=== PATIENT | female | born 1985 | race Caucasian/White ===

== ENCOUNTER 2021-04-15 07:51 | Day surgery (SDC) | payer OTHER ==
[~2021-04-15 07:51] MED LIST: Lidocaine 1% with EPINEPHrine 1:100,000 20 ML MDV ONE; Lidocaine 1%/Sod Bicarbonate in NS 8.4% 1 ML Syringe IDERM PRN; Sodium Chloride 0.9% 10 ML Syringe FLUSH PRN; Sodium Chloride 0.9% 20 ML ONE
[2021-04-15] MEDS ORDERED: fentaNYL 250 MCG/5 ML SDV ONE (08:15)
[2021-04-15] MEDS ORDERED: Ondansetron 4 MG/2 ML SDV ONE (08:15)
[2021-04-15] MEDS ORDERED: Rocuronium 50 MG/5 ML Vial ONE (08:15)
[2021-04-15] MEDS ORDERED: Midazolam 1 MG/ML 2 ML SDV ONE ×2 (08:15→09:04)
[2021-04-15] MEDS ORDERED: Propofol 200 MG/20 ML SDV ONE (08:15)
[2021-04-15] MEDS ORDERED: Dexamethasone 4 MG/ML 5 ML MDV ONE (08:15)
[2021-04-15] MEDS ORDERED: Lidocaine 1% 4 ML ONE (08:15)
[2021-04-15] MEDS: Lactated Ringers 1,000 ML IV SCH ×2 (08:15→14:21)
[2021-04-15] MEDS ORDERED: Ketamine 500 mg/10 ML MDV ONE (08:20)
[2021-04-15] MEDS ORDERED: ceFAZolin 1 GM Vial ONE (08:21)
--- NOTE | 2021-04-15 08:46 | PCM.PREANE ---
Preanesthetic Assessment - Procedure Proposed Procedure: tvh with bs - Anesthesia/Transfusion/Family Hx Anesthesia History: Prior Anesthesia Without Reaction Family History of Anesthesia Reaction: No Transfusion History: No Prior Transfusion(s) - Review of Systems General: No Symptoms Pulmonary: No Symptoms Cardiovascular: No Symptoms Gastrointestinal: No Symptoms Neurological: No Symptoms Other: Reports: Depression, Anxiety - Physical Assessment NPO Status Date: 04/14/21 NPO Status Time: 22:30 Vital Signs: 140/92 82 98% 99.0 16 Height: 5 ft 2 in Weight: 67.3 kg ASA Class: 2 Mental Status: Alert & Oriented x3 Airway Class: Mallampati = 1 Dentition: Reports: Normal Dentition Thyro-Mental Finger Breadths: 3 Mouth Opening Finger Breadths: 3 ROM/Head Extension: Full Lungs: Clear to Auscultation, Normal Respiratory Effort Cardiovascular: Regular Rate, Regular Rhythm - Allergies Allergies/Adverse Reactions: Allergies Allergy/AdvReac Type Severity Reaction Status Date / Time No Known Allergies Allergy Verified 04/14/21 15:38 - Blood Blood Available: No - Acknowledgements Anesthesia Type Planned: General Anesthesia Pt an Appropriate Candidate for the Planned Anesthesia: Yes Alternatives and Risks of Anesthesia Discussed w Pt/Guardian: Yes Pt/Guardian Understands and Agrees with Anesthesia Plan: Yes PreAnesthesia Questionnaire HEENT History: Reports: None Cardiovascular History: Reports: Other (See Below) Other Cardiovascular History: PIH towards the end of every Respiratory History: Reports: None Gastrointestinal History: Reports: Other (See Below) Other Gastrointestinal History: UMBILICAL HERNIA, ABDOMINAL PAIN Genitourinary History: Reports: Other (See Below) Other 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: Endometrial Ablation, , Other (See Below) Other OB/BYN History: breast cyst, bilateral galactorrhea, right breast mass, abnormal uterine bleeding, menorrhagia, dysmenorrhea, Musculoskeletal History: Reports: None Neurological History: Reports: Headaches, Chronic, Migraines Psychiatric History: Reports: Anxiety, Depression, Other (See Below) Other Psychiatric History: fatigue Endocrine/Metabolic History: Reports: Diabetes, Gestational Hematologic History: Reports: None Immunologic History: Reports: None Oncologic (Cancer) History: Reports: None Dermatologic History: Reports: Other (See Below) Other Dermatologic History: nevus - Infectious Disease History Infectious Disease History: Reports: None - Past Surgical History Head Surgeries/Procedures: Reports: None HEENT Surgical History: Reports: Oral Surgery, Tonsillectomy Cardiovascular Surgical History: Reports: None Respiratory Surgical History: Reports: None GI Surgical History: Reports: None Female Surgical History: Reports: Section Male Surgical History: Reports: None Endocrine Surgical History: Reports: None Neurological Surgical History: Reports: None Musculoskeletal Surgical History: Reports: None Oncologic Surgical History: Reports: None Dermatological Surgical History: Reports: None - SUBSTANCE USE Tobacco Use Status *Q: Never Tobacco User Tobacco Use Within Last Twelve Months: No Second Hand Smoke Exposure: No Days Per Week of Alcohol Use: 1 Recreational Drug Use History: No - HOME MEDS Home Medications: Home Meds FLUoxetine HCl [Fluoxetine HCl] 20 mg PO DAILY 04/02/19 [History] Multivitamin [Daily Multiple Vitamin] 1 tab PO DAILY 04/02/19 [History] Lactobacillus Acidophilus [Probiotic] 1 cap PO DAILY 04/14/21 [History] - CURRENT (IN HOUSE) MEDS Current Meds: Current Medications Lactated Ringer's (Ringers, Lactated) 1,000 mls @ 125 mls/hr IV ASDIRECTED VANESSA Stop: 04/15/21 23:00 Lidocaine/Sodium Bicarbonate (Lidocaine 1%/Sod Bicarbonate In Ns 8.4% 1 Ml Syringe) 0.25 ml IDERM ONETIME PRN PRN Reason: Prior to IV Start Stop: 04/15/21 18:00 Sodium Chloride (Sodium Chloride 0.9% 10 Ml Syringe) 10 ml FLUSH ASDIRECTED PRN PRN Reason: Keep Vein Open Stop: 04/15/21 18:00 Discontinued Medications Cefazolin Sodium (Cefazolin 1 Gm Vial) Confirm Administered Dose 2 gm .ROUTE .STK-MED ONE Stop: 04/15/21 08:22 Dexamethasone (Dexamethasone 4 Mg/Ml 5 Ml Mdv) Confirm Administered Dose 20 mg .ROUTE .STK-MED ONE Stop: 04/15/21 08:16 Fentanyl (Fentanyl 250 Mcg/5 Ml Sdv) Confirm Administered Dose 250 mcg .ROUTE .STK-MED ONE Stop: 04/15/21 08:16 Sodium Chloride (Normal Saline) Confirm Administered Dose 20 mls @ as directed .ROUTE .STK-MED ONE Stop: 04/15/21 07:28 Lidocaine HCl (Xylocaine-Mpf 1%) Confirm Administered Dose 4 mls @ as directed .ROUTE .STK-MED ONE Stop: 04/15/21 08:16 Ketamine HCl (Ketamine 500 Mg/10 Ml Mdv) Confirm Administered Dose 500 mg .ROUTE .STK-MED ONE Stop: 04/15/21 08:21 Lidocaine/Epinephrine (Lidocaine 1% With Epinephrine 1:100,000 20 Ml Mdv) Confirm Administered Dose 20 ml .ROUTE .STK-MED ONE Stop: 04/15/21 07:28 Midazolam HCl (Midazolam 1 Mg/Ml 2 Ml Sdv) Confirm Administered Dose 2 mg .ROUTE .STK-MED ONE Stop: 04/15/21 08:16 Ondansetron HCl (Ondansetron 4 Mg/2 Ml Sdv) Confirm Administered Dose 4 mg .ROUTE .STK-MED ONE Stop: 04/15/21 08:16 Propofol (Propofol 200 Mg/20 Ml Sdv) Confirm Administered Dose 200 mg .ROUTE .STK-MED ONE Stop: 04/15/21 08:16 Rocuronium [place] (Rocuronium 50 Mg/5 Ml Vial) Confirm Administered Dose 50 mg .ROUTE .STK-MED ONE Stop: 04/15/21 08:16
[2021-04-15] MEDS ORDERED: Ondansetron 4 MG/2 ML SDV IVPUSH PRN ×2 (10:33→11:10)
[2021-04-15] MEDS ORDERED: HYDROmorphone 0.5 MG/0.5 ML Syringe IVPUSH PRN (10:33)
[2021-04-15] MEDS ORDERED: fentaNYL 100 MCG/2 ML SDV IVPUSH PRN (10:33)
[2021-04-15] MEDS ORDERED: ePHEDrine 50 MG/ML SDV ONE (10:42)
[2021-04-15] MEDS ORDERED: HYDROmorphone 0.5 MG/0.5 ML Syringe ONE (10:45)
[2021-04-15] MEDS ORDERED: Lactated Ringers 1,000 ML ONE (10:52)
[2021-04-15] MEDS ORDERED: Ketorolac 30 MG/ML SDV ONE (10:58)
[2021-04-15] MEDS ORDERED: Ibuprofen 600 MG Tab PO PRN (11:10)
[2021-04-15] MEDS ORDERED: Acetaminophen/oxyCODONE 325-5 MG Tab PO PRN (11:10)
[2021-04-15] MEDS ORDERED: Ketorolac 30 MG/ML SDV IVPUSH SCH (11:15)
--- NOTE | 2021-04-15 11:16 | PCM.OPNOTE ---
- General Post-Op/Procedure Note Date of Surgery/Procedure: 04/15/21 Operative Procedure(s): Total vaginal hysterectomy with bilateral salpingectomy Findings: Grade 1 uterine descensus, anterior and posterior relaxation. Ovaries bilaterally normal exam and functional in appearance. Uterus normal in size and appearance. Pre Op Diagnosis: 1. Dyspareunia. 2. Dysmenorrhea Post-Op Diagnosis: Same Anesthesia Technique: General ET Tube, MAC Other Anesthesia Type: Lidocaine quarter percent with [id number] cclocal Primary Surgeon: Elijah Burch Secondary Surgeon: Moisés Perez Anesthesia Provider: Amarilis Sampson Adult Protective Caseworker: Lorna Jackman Reason Adult Protective Caseworker Was Necessary: Assistance, retraction, patient safety, quality of care. Pathology: Uterus, bilateral fallopian tubes in one specimen container. Fluid Replacement, Intraop: 1,000 Complications: None Condition: Good Free Text/Narrative:: Surgery duration: 29 minutes Procedure: The patient was placed in supine position on the operating table. She received 2 g of Ancef preoperatively for infection prophylaxis and had sequential compression stockings in place for DVT prophylaxis. General endotracheal anesthesia was accomplished. After positioning, and adequate prep and drape, the procedure was then performed. Sterile speculum was placed in the vagina and cervix was visualized. Cervix was injected with lidocaine quarter percent with epinephrine-20 mL used. A full circumference incision was made in the cervical epithelium. The bladder was pushed well back off cervix. Posterior cul-de-sac was then entered sharply without problems. Left uterosacral was crossclamped with a Enseal vessel closure system. The left uterosacral and then the right uterosacral ligament pedicles were developed using the Enseal system. The anterior cul-de-sac was then entered without problems and the uterine vasculature, cardinal ligament and broad ligament then developed using Enseal vessel closure system. The uterus was inverted at this time and upper broad ligament fallopian tube pedicles were crossclamped with Beto clamps. Specimen was totally removed. Both these pedicles were then secured with the Enseal vessel closure system. Left and right fallopian tube was normal in appearance.. Using Enseal vessel closure system each of the tubes was then removed and sent with the specimen. The patient was found to be hemostatically intact at this time. Vaginal cuff was sutured for hemostatic reasons with a running locked suture of 0 Monocryl from the 2 o'clock position to the 10 o'clock position posteriorly. Vaginal cuff was then closed from left side to right side with a running locked suture of 0 Monocryl. Patient was returned to supine position and awakened from general endotracheal anesthesia. She tolerated the procedure and left the operating room in satisfactory condition.
--- NOTE | 2021-04-15 11:26 | PCM.POSTAN ---
POST ANESTHESIA ASSESSMENT - MENTAL STATUS Mental Status: Alert, Oriented - VITAL SIGNS Vital Signs: Last Vital Signs Temp 99.0 F 04/15/21 08:00 Pulse 82 04/15/21 08:00 Resp 16 04/15/21 08:00 BP 140/92 H 04/15/21 08:00 Pulse Ox 98 04/15/21 08:00 1120 113 14 97.0 136/95 99% - RESPIRATORY Respiratory Status: Respiratory Rate WNL, Airway Patent, O2 Saturation Stable, Supplemental Oxygen - CARDIOVASCULAR CV Status: Pulse Rate WNL, Blood Pressure Stable - GASTROINTESTINAL GI Status: No Symptoms - PAIN Pain Score: 0 - POST OP HYDRATION Hydration Status: Adequate & Stable
--- NOTE | 2021-04-15 12:20 | PCM48HPAN ---
Post Anesthesia Note - EVALUATION WITHIN 48HRS OF ANESTHETIC Vital Signs in Normal Range: Yes Patient Participated in Evaluation: Yes Respiratory Function Stable: Yes Airway Patent: Yes Cardiovascular Function Stable: Yes Hydration Status Stable: Yes Pain Control Satisfactory: Yes Nausea and Vomiting Control Satisfactory: Yes Mental Status Recovered: Yes Vital Signs: Last Vital Signs Temp 97.0 F 04/15/21 11:20 Pulse 82 04/15/21 08:00 Resp 15 04/15/21 11:45 BP 131/79 04/15/21 11:45 Pulse Ox 99 04/15/21 11:45 - COMMENTS/OBSERVATIONS Free Text/Narrative:: No complaints- ordering food
[2021-04-15 15:02] VITALS: BP 130/87; PULSE 95
== END 2021-04-15 13:54 | disposition home or self-care (01) ==
LOC: JD.SDS 07:51
PROVIDERS: ATTEND Obstetrics & Gynecology
DX: N87.1 Moderate cervical dysplasia (principal); N80.0 Endometriosis of uterus; N83.8 Other noninflammatory disorders of ovary, fallopian tube and broad ligament; N81.2 Incomplete uterovaginal prolapse; F41.8 Other specified anxiety disorders; G43.909 Migraine, unspecified, not intractable, without status migrainosus; F17.210 Nicotine dependence, cigarettes, uncomplicated; Z79.899 Other long term (current) drug therapy; Z98.890 Other specified postprocedural states
CPT/HCPCS: 58262; A9270; J0690; J1100; J1170; J1885; J2250; J2405; J2704; J2710; J3010; J7120; 00944

== ENCOUNTER 2024-06-05 12:07 | Emergency (ER) | payer BC ==
[2024-06-05 12:28] VITALS: PULSE 77
[2024-06-05 13:09] LABS: BASOPHILS PERCENT AUTO 0.3 % (0.0-1.0); EOSINOPHILS ABSOLUTE AUTO 0.2 K/mm3 (0.0-0.4); EOSINOPHILS PERCENT AUTO 2.2 % (0.0-6.0); HEMOGLOBIN 12.9 gm/dl (12.0-16.0); IMMATURE GRAN ABSOLUTE AUTO 0.04 K/mm3 (0.00-0.05); IMMATURE GRAN PERCENT AUTO 0.4 % (0.0-0.4); LYMPHOCYTES ABSOLUTE AUTO 1.8 K/mm3 (1.0-4.8); LYMPHOCYTES PERCENT AUTO 16.5 % (24.0-44.0); MEAN CORPUSCULAR HEMOGLOBIN 29.2 pg (28.0-32.0); MEAN CORPUSCULAR HGB CONC 32.3 g/dl (32.0-36.0); MEAN CORPUSCULAR VOLUME 90.5 fl (83.0-99.0); MEAN PLATELET VOLUME 9.8 fl (9.4-12.3); MONOCYTES ABSOLUTE AUTO 0.6 K/mm3 (0.0-0.8); MONOCYTES PERCENT AUTO 5.1 % (0.0-8.0); NEUTROPHILS ABSOLUTE AUTO 8.2 K/mm3 (1.8-7.7); NEUTROPHILS PERCENT AUTO 75.5 % (41.0-71.0); PLATELET COUNT,PLT 271 K/mm3 (150-400); RED BLOOD CELL COUNT 4.42 M/mm3 (4.10-5.30); WHITE BLOOD CELL COUNT,WBC 10.89 K/mm3 (3.9-11.3)
[2024-06-05 13:25] LABS: INR 0.96; PROTHROMBIN TIME 10.2 SECONDS (9.7-12.0)
[2024-06-05 13:26] LABS: PTT,PARTIAL THROMBOPLSTIN TIME 24.9 SECONDS (21.7-31.4)
[2024-06-05 13:36] LABS: A/G RATIO 0.9 (1-2); ALBUMIN 3.2 g/dl (3.4-5.0); ANION GAP 12.9 (5-15); BILIRUBIN TOTAL 0.4 mg/dL (0.2-1.0); CALCIUM 9.1 mg/dL (8.5-10.1); EST CRCL DRUG DOSING (CG) 60.92 mL/min; MAGNESIUM 1.6 mg/dL (1.8-2.4); POTASSIUM,K 3.9 mEq/L (3.5-5.1); PROTEIN TOTAL,TP 6.6 g/dl (6.4-8.2)
[2024-06-05] MEDS: Magnesium Oxide 400 MG Tab PO ONE (14:18)
[2024-06-05 19:15] VITALS: BP 112/77
== END 2024-06-05 14:20 | disposition home or self-care (01) ==
LOC: JD.ED 12:07
DX: R07.89 Other chest pain (principal); E83.42 Hypomagnesemia; I10 Essential (primary) hypertension; Z90.710 Acquired absence of both cervix and uterus; Z88.8 Allergy status to other drugs, medicaments and biological substances
CPT/HCPCS: 36415; 71045; 71045-26; 80053; 83735; 83880; 84484; 85025; 85610; 85730; 93005; 99285; A9270-GY